=== PATIENT | male | born 1975 | race Caucasian/White ===

== ENCOUNTER → 2023-12-22 | Emergency (ER) | payer SELFPAY ==
[~2023-12-22] MED LIST: AMOX/K CLAV 875 MG TAB ONE; KETOROLAC 30 MG/ML INJ ONE
[2023-12-22 22:28] LABS: Hematocrit 38.7 % (39.6-49.0); Lymphocytes % 42.5 % (15.3-44.8); MCV 87.7 fL (80-100); MPV 7.6 fL (7.6-11.3); Platelets 222 thou/uL (152-406); RBC Red Blood Cell Count 4.41 M/uL (4.33-5.43)
[2023-12-22 22:47] LABS: Albumin 3.3 g/dL (3.4-5.0); Bilirubin Direct 0.1 mg/dL (0-0.2); Bilirubin Indirect, Calculated 0.2 mg/dL (0.2-0.8); Bilirubin Total 0.3 mg/dL (0.2-1.0); Potassium 3.8 mEq/L (3.5-5.1); Protein, Total 6.9 g/dL (6.4-8.2); Troponin High Sensitivity 5.3 pg/mL (<58.9)
--- NOTE | 2023-12-23 00:21 | ER ---
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 Pt reports cm10 that he also has RUQ abdominal pain that goes to his back. Pt states that he had pneumonia 2 weeks ago. Pt reports drinking 10 beers and having 1 shot of whiskey. Coronavirus screen: Vaccine status: Patient reports receiving the 2nd dose of the covid vaccine. Client denies travel out of the [place] in the last 14 days. Ebola Screen: Patient denies travel to an Ebola-affected area in the 21 days before illness onset. No symptoms or risks identified at this time. Initial Sepsis Screen: Does the patient meet any 2 criteria? No. Patient's initial sepsis screen is negative. Does the patient have a suspected source of infection? No. Patient's initial sepsis screen is negative. Risk Assessment: Do you want to hurt yourself or someone else? Patient reports no desire to harm self or others. Onset of symptoms was December 22, 2023. 22:11 Method Of Arrival: Wheelchair cm10 22:11 Acuity: JETHRO 2 cm10 Historical: - Allergies: 22:13 No Known Allergies; cm10 - PMHx: 22:13 PTSD; Major depressive disorder; Obsessive Compulsive Disorder; cm10 - Immunization history:: Adult Immunizations up to date. - Social history:: Smoking status: Patient denies any tobacco usage or history of. - Family history:: not pertinent. - Hospitalizations: : No recent hospitalization is reported. Screenin:15 [facility] ED Fall Risk Assessment (Adult) History of falling in the last 3 months, jw7 including since admission No falls in past 3 months (0 pts) Score/Fall Risk Level 0 - 2 = Low Risk Oriented to surroundings, Maintained a safe environment, Educated pt \T\ family on fall prevention, incl call for assistance when getting out of bed. Abuse screen: Denies threats or abuse. Denies injuries from another. Nutritional screening: No deficits noted. Tuberculosis screening: No symptoms or risk factors identified. Assessment: 22:15 General: Appears in no apparent distress. comfortable, Behavior is calm, cooperative. jw7 Pain: Complains of pain in chest Pain does not radiate. Pain currently is 6 out of 10 on a pain scale. Quality of pain is described as pressure, Pain began suddenly, Is continuous. Neuro: Elias Agitation-Sedation Scale (RASS): 0 - Alert and Calm Level of Consciousness is awake, alert, obeys commands, Oriented to person, place, time, situation. Cardiovascular: Capillary refill < 3 seconds Clubbing of nail beds is absent JVD is absent Patient's skin is warm and dry. Respiratory: Airway is patent Trachea midline Respiratory effort is even, unlabored, Respiratory pattern is regular, symmetrical. GI: No deficits noted. No signs and/or symptoms were reported involving the gastrointestinal system. : No deficits noted. No signs and/or symptoms were reported regarding the genitourinary system. EENT: No deficits noted. No signs and/or symptoms were reported regarding the EENT system. Derm: Skin is intact, is healthy with good turgor, Skin is dry, Skin is normal, Skin temperature is warm. Musculoskeletal: Circulation, motion, and sensation intact. Range of motion: intact in all extremities. 23:00 Reassessment: Patient appears in no apparent distress at this time. No changes from jw7 previously documented assessment. Patient and/or family updated on plan of care and expected duration. Pain level reassessed. Patient is alert, oriented x 3, equal unlabored respirations, skin warm/dry/pink. 12/23 00:00 Reassessment: Patient appears in no apparent distress at this time. No changes from jw7 previously documented assessment. Patient and/or family updated on plan of care and expected duration. Pain level reassessed. Patient is alert, oriented x 3, equal unlabored respirations, skin warm/dry/pink. 01:09 Reassessment: Patient appears in no apparent distress at this time. No changes from jw7 previously documented assessment. Patient and/or family updated on plan of care and expected duration. Pain level reassessed. Patient is alert, oriented x 3, equal unlabored respirations, skin warm/dry/pink. Vital Signs: 12/22 22:11 BP 130 / 88; Pulse 83; Resp 16; Temp 97.6; Pulse Ox 96% on R/A; Weight 107.95 kg; cm10 Height 5 ft. 8 in. ; 23:00 BP 113 / 69; Pulse 78; Resp 20 S; Pulse Ox 94% on R/A; jw7 12/23 00:00 BP 98 / 59; Pulse 70; Resp 15 S; Pulse Ox 94% on R/A; jw7 01:00 BP 97 / 57; Pulse 74; Resp 15 S; Pulse Ox 95% on R/A; jw7 12/22 22:11 Body Mass Index 36.19 (107.95 kg, 172.72 cm) cm10 ED Course: 12/22 22:11 Patient arrived in ED. cm10 22:11 Zay Barajas MD is Attending Physician. rn 22:13 Triage completed. cm10 22:14 Arm band placed on Patient placed in an exam room, on bus driver/monitor, on pulse cm10 oximetry. 22:15 Patient has correct armband on for positive identification. Bed in low position. Call jw7 light in reach. Side rails up X 1. Client placed on continuous cardiac and pulse oximetry monitoring. NIBP monitoring applied. 22:15 Patient maintains SpO2 saturation greater than 95% on room air. jw7 22:19 Otilia Fisher RN is Primary Nurse. jw7 22:20 Initial lab(s) drawn, by ED staff, sent to lab. EKG done, by ED staff, reviewed by jane Barajas MD. Inserted saline lock: 20 gauge in right antecubital area, using aseptic technique. Blood collected. 22:55 XRAY Chest (1 view) In Process Unspecified. EDMS 23:16 CT Chest For PE Angio In Process Unspecified. EDMS 12/23 01:11 No provider procedures requiring assistance completed. IV discontinued, intact, jw7 bleeding controlled, No redness/swelling at site. Pressure dressing applied. 01:12 Provided Education on: discharge instructions and medication usage. jw7 Administered Medications: :08 Drug: Amoxicillin-Clavulanate PO 875 mg PO once Route: PO; jw7 : Follow up: Response: No adverse reaction jw7 01:08 Drug: Clindamycin PO 300 mg PO once Route: PO; jw7 :09 Follow up: Response: No adverse reaction jw7 :08 Drug: Ketorolac IVP 15 mg IVP once Route: IVP; Site: right antecubital; jw7 01:09 Follow up: Response: No adverse reaction jw7 Medication: 01:12 VIS not applicable for this client. jw7 Outcome: 00:20 Discharge ordered by . rn 01:11 Discharged to home ambulatory, with friend, jane 01:11 Condition: stable 01:11 Discharge instructions given to patient, Instructed on discharge instructions, follow up and referral plans. medication usage, Demonstrated understanding of instructions, follow-up care, medications, Prescriptions given X 3, 01:12 Patient left the ED. jw7 Signatures: Dispatcher [employer] EDMS Zay Barajas MD MD rn Waits, Jodi, RN RN jw7 Aurora Pacheco RN RN cm10
--- NOTE | 2023-12-23 00:21 | EDPHYS ---
Physician Documentation [facility] Name: Carlos Shi Age: 48 yrs Sex: Male : 1975 Arrival Date: 12/22/2023 Time: 22:03 Bed 20 Private MD: ED Physician Zay Barajas HPI: 12/22 22:43 This 48 yrs old Male presents to ER via Wheelchair with complaints of Chest Pain > 30 rn y/o. 22:43 The patient or guardian reports chest pain that is located primarily in the anterior rn chest wall, bilaterally. Onset: today. The pain does not radiate. Associated signs and symptoms: Pertinent positives: cough, Pertinent negatives: abdominal pain, shortness of breath, syncope, vomiting. The chest pain is described as sharp, stabbing. Duration: The patient or guardian reports multiple episodes, that are intermittent. Modifying factors: The symptoms are alleviated by nothing. the symptoms are aggravated by nothing. Severity of pain: At its worst the pain was mild in the emergency department the pain is unchanged. The patient has not experienced similar symptoms in the past. Patient reports bilateral rib pain, noticed worse on the left side today so came in for evaluation. Patient reports family history of cardiac deaths in their 70s and significant other wanted him checked. Patient reports diagnosed with pneumonia 2 weeks ago and finished antibiotics. Reports still mild cough that has been nonproductive. No history of DVT or PE. No abdominal pain or vomiting. Was drinking today prior to arrival. No trauma. Historical: - Allergies: 22:13 No Known Allergies; cm10 - PMHx: 22:13 PTSD; Major depressive disorder; Obsessive Compulsive Disorder; cm10 - Immunization history:: Adult Immunizations up to date. - Social history:: Smoking status: Patient denies any tobacco usage or history of. - Family history:: not pertinent. - Hospitalizations: : No recent hospitalization is reported. ROS: 22:43 Constitutional: Negative for fever, chills, and weight loss, Neck: Negative for injury, rn pain, and swelling, Cardiovascular: Positive for chest pain Respiratory: Negative for shortness of breath, wheezing Abdomen/GI: Negative for abdominal pain, nausea, vomiting, diarrhea, and constipation, Back: Negative for injury and pain, MS/Extremity: Negative for injury and deformity, Skin: Negative for injury, rash, and discoloration, Neuro: Negative for headache, weakness, numbness, tingling, and seizure, Exam: 22:23 ECG was reviewed by the Attending Physician. rn 22:43 Constitutional: This is a well developed, well nourished patient who is awake, alert, rn and in no acute distress. Smells of EtOH Head/Face: Normocephalic, atraumatic. Chest/axilla: Mild tenderness along anterior inferior ribs. No crepitus. No ecchymosis. Cardiovascular: Regular rate and rhythm. No pulse deficits. Respiratory: No increased work of breathing, no retractions or nasal flaring. Abdomen/GI: Soft, nontender, negative [place] Sou[place] MS/ Extremity: Pulses equal, no cyanosis. Neurovascular intact. Full, normal range of motion. Equal circumference. Neuro: Awake and alert, GCS 15 Vital Signs: 22:11 BP 130 / 88; Pulse 83; Resp 16; Temp 97.6; Pulse Ox 96% on R/A; Weight 107.95 kg; cm10 Height 5 ft. 8 in. ; 23:00 BP 113 / 69; Pulse 78; Resp 20 S; Pulse Ox 94% on R/A; jw7 12/23 00:00 BP 98 / 59; Pulse 70; Resp 15 S; Pulse Ox 94% on R/A; jw7 01:00 BP 97 / 57; Pulse 74; Resp 15 S; Pulse Ox 95% on R/A; jw7 12/22 22:11 Body Mass Index 36.19 (107.95 kg, 172.72 cm) cm10 MDM: 12/22 22:12 Patient medically screened. rn 12/23 00:18 Differential diagnosis: acute myocardial infarction, acute pericarditis, anxiety, chest rn wall pain, costochondritis, gastroesophageal reflux disease (GERD), pleurisy, pneumonia, pneumothorax, pulmonary embolus. Data reviewed: vital signs, nurses notes. 00:19 Counseling: I had a detailed discussion with the patient and/or guardian regarding the rn historical points, exam findings, and any diagnostic results supporting the discharge/admit diagnosis, lab results, radiology results, the need for outpatient follow up, to return to the emergency department if symptoms worsen or persist or if there are any questions or concerns that arise at home. Response to treatment: the patient's symptoms have mildly improved after treatment, and as a result, I will discharge patient. Special discussion: I discussed with the patient/guardian in detail that at this point there is no indication for admission to the hospital. It is understood, however, that if the symptoms persist or worsen the patient needs to return immediately for re-evaluation. 00:19 ED course: No acute findings and workup. Patient looks to still have a tiny loculated rn effusion, possibly from recent pneumonia. Negative troponin. Normal ECG. Will discharge home with another round of antibiotics and PCP follow-up. Strict return precautions given and understood.. 12/22 22:12 Order name: Basic Metabolic Panel; Complete Time: 22:49 rn 12/22 22:12 Order name: CBC with Diff; Complete Time: 22:42 rn 12/22 22:12 Order name: LFT's; Complete Time: :49 rn 12/22 22:12 Order name: NT PRO-BNP; Complete Time: 22:49 rn 12/22 22:12 Order name: Troponin HS; Complete Time: :49 rn 12/22 22:12 Order name: XRAY Chest (1 view) rn 12/22 22:12 Order name: CT Chest For PE Angio rn 12/22 22:12 Order name: EKG; Complete Time: 22:13 rn 12/22 22:12 Order name: Cardiac monitoring; Complete Time: 22:20 rn 12/22 22:12 Order name: EKG - Nurse/Tech; Complete Time: 22:20 rn 12/22 22:12 Order name: IV Saline Lock; Complete Time: 22:20 rn 12/22 22:12 Order name: Labs collected and sent; Complete Time: 22:20 rn 12/22 22:12 Order name: O2 Per Protocol; Complete Time: 22:20 rn 12/22 22:12 Order name: O2 Sat Monitoring; Complete Time: 22:20 rn EC/03 22:23 Rate is 79 beats/min. Rhythm is regular. QRS [place] is Normal. MI interval is normal. QRS rn interval is normal. QT interval is normal. No Q waves. T waves are Normal. No ST changes noted. Clinical impression: Normal ECG. Interpreted by me. Reviewed by me. Administered Medications: 12/23 01:08 Drug: Amoxicillin-Clavulanate PO 875 mg PO once Route: PO; : Follow up: Response: No adverse reaction : Drug: Clindamycin PO 300 mg PO once Route: PO; jw7 01:09 Follow up: Response: No adverse reaction jw7 01:08 Drug: Ketorolac IVP 15 mg IVP once Route: IVP; Site: right antecubital; jw7 01:09 Follow up: Response: No adverse reaction jw7 Disposition Summary: 12/23/23 00:20 Discharge Ordered Notes: Location: Home rn Problem: an ongoing problem rn Symptoms: have improved rn Condition: Stable rn Diagnosis - Chest pain, unspecified rn - Pleural effusion, not elsewhere classified rn Followup: rn - With: Private Physician - When: As needed - Reason: Recheck today's complaints, Re-evaluation by your physician Discharge Instructions: - Discharge Summary Sheet rn - Nonspecific Chest Pain, Adult rn - Pleural Effusion rn - Pleurisy rn Forms: - Medication Reconciliation Form rn - Thank You Letter rn - Antibiotic administration internship - Prescription Opioid Use rn - Patient Portal Instructions rn - Leadership Thank You Letter rn Prescriptions: - Augmentin 875-125 mg Oral Tablet - take 1 tablet ORAL route every 12 hours for 10 days; 20 tablet; Refills: 0, rn Product Selection Permitted - Clindamycin HCl 300 mg Oral Capsule - take 1 capsule ORAL route every 6 hours for 10 days; 40 capsule; Refills: 0, rn Product Selection Permitted - Ibuprofen 800 mg Oral Tablet - take 1 tablet ORAL route every 12 hours As needed take with food; 20 tablet; rn Refills: 0, Product Selection Permitted Signatures: Dispatcher [employer] Zay Call MD MD rn Waits, Jodi RN RN jw7 Aurora Pacheco RN RN cm10
[2023-12-23 03:59] VITALS: TEMP 97.6
[2023-12-23 04:22] VITALS: BP 97/57; O2SAT 95
--- NOTE | 2023-12-24 11:09 | RAD REPORT ---
EXAM DESCRIPTION: RAD - Chest Single View - 12/22/2023 10:53 pm CLINICAL HISTORY: 48 years Male recent pneumonia; Chest pain TECHNIQUE: One view of the chest. COMPARISON: No prior exams provided for comparison. FINDINGS: The lungs are clear without focal consolidation, effusion, or pneumothorax. The cardiomedi astinal silhouette and central pulmonary vasculature are normal. No acute osseous abnormalities. IMPRESSION: No acute cardiopulmonary abnormalities. 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 The interpreting r adiologist is fully responsible for the content of the report.
--- NOTE | 2023-12-24 11:25 | RAD REPORT ---
EXAM DESCRIPTION: CT - Chest For Pe Angio - 12/23/2023 7:15 am CLINICAL HISTORY: CHEST PAIN TECHNIQUE: Contiguous axial images obtained through the chest during angiographic phase following th e uneventful administration of IV contrast. Sagittal and coronal reformatted images were provided. 3- D MIP reformatted images were provided. This exam was performed according to our departmental dose-optimization program, which includes autom ated exposure control, adjustment of the mA and/or kV according to patient size and/or use of iterati ve reconstruction technique. COMPARISON: No prior exams provided for comparison. FINDINGS: Diagnostic quality: Suboptimal opacification of subsegmental pulmonary arteries. Images degraded by respiratory motion artifact. Lungs: No focal consolidation. Airways are patent. Atelectatic changes and pleuroparenchymal scarring in the right upper lobe and right lower lobe. Pleura: Small loculated right pleural effusion. No pneumothorax. Heart and pericardium: Mild cardiomegaly. No pericardial effusion. Mediastinum and neida: No pathologically enlarged lymph nodes. Lower neck and chest wall: Unremarkable Vessels: No evidence of central pulmonary emboli. Smaller subsegmental pulmonary emboli cannot be excluded. No thoracic aortic aneurysm. Upper abdomen: Diffuse fatty infiltration of the liver. Bones: Old right rib fractures. IMPRESSION: 1. Suboptimal opacification of subsegmental pulmonary arteries. Images degraded by res piratory motion artifact. No evidence of central pulmonary emboli. Smaller subsegmental pulmonary emb bunny cannot be excluded. 2. Small loculated right pleural effusion. Atelectatic changes and pleuroparenchymal scarring in th e right upper lobe and right lower lobe. 3. Diffuse fatty infiltration of the liver. 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 The interpreting r adiologist is fully responsible for the content of the report.
--- NOTE | 2023-12-25 12:58 | EKG ---
Test Date: 2023-12-22 Test Time: 22:13:07 Paper Supervisor: RANDALL MEASUREMENT RESULTS: Intervals: Rate: 79 MA: 168 QRSD: 96 QT: 376 QTc: 431 [place]: P: 64 MA: 168 QRS: 19 T: 62 INTERPRETIVE STATEMENTS: Normal sinus rhythm Normal ECG No previous ECG available for comparison Electronically Signed On 12-25-23 12:53:47 CAN OPERATOR by Christiano Varela
== END ==
LOC: ER 22:03
DX: R07.9 Chest pain, unspecified (principal); J90 Pleural effusion, not elsewhere classified
CPT/HCPCS: 36415; 71045; 71275; 80048; 80076; 83880; 84484; 85025; 93005; Q9967